=== PATIENT | male | born 1960 | race Caucasian/White ===

== ENCOUNTER → 2021-09-27 | Outpatient (CLI) | payer OTHER ==
[~2021-09-27] MED LIST: ASPIRIN EC81 MG PO; BRILINTA 90 MG90 MG PO; LIPITOR TAB 2020 MG PO; LISINOPRIL5 MG PO; LOPRESSOR 25 MG25 MG PO
== END ==
LOC: KOH-I 15:24
DX: F17.210 Nicotine dependence, cigarettes, uncomplicated (principal); I25.10 Atherosclerotic heart disease of native coronary artery without angina pectoris; Z95.5 Presence of coronary angioplasty implant and graft
CPT/HCPCS: 71271